=== PATIENT | male | born 1990 | race Caucasian/White ===

== ENCOUNTER 2022-10-27 04:33 | Day surgery (SDC) | payer BC ==
[2022-10-18 15:12] VITALS: BMI 28.7
[2022-10-27] MEDS ORDERED: COCAINE HCL 4% TOPICAL SOLUTION 4 ML BOTTLE TP ONE ×2 (07:18→08:23)
[2022-10-27] MEDS ORDERED: PROPOFOL 20 ML ONE (07:32)
[2022-10-27] MEDS ORDERED: FENTANYL CITRATE/PF 50 MCG/ML VIAL ONE (07:32)
[2022-10-27] MEDS ORDERED: MIDAZOLAM HCL 2 MG/2 ML SINGLE DOSE VIAL ONE (07:33)
[2022-10-27] MEDS ORDERED: ROCURONIUM BROMIDE 50 MG/5 ML SYRINGE ONE (07:33)
[2022-10-27] MEDS ORDERED: ONDANSETRON 4 MG/2 ML VIAL ONE (07:42)
[2022-10-27] MEDS ORDERED: LIDOCAINE HCL/PF 2% SDV 5ML VIAL ONE (07:42)
[2022-10-27] MEDS ORDERED: DEXAMETHASONE SOD PHOSPHATE 4 MG/1 ML VIAL ONE (07:42)
[2022-10-27] MEDS ORDERED: BENZOIN/ALOE VERA/STORAX/TOLU 58 ML BOTTLE ONE (07:52)
[2022-10-27] MEDS ORDERED: BENZOIN/ALOE VERA/STORAX/TOLU 58 ML BOTTLE TP ONE (08:24)
[2022-10-27] MEDS ORDERED: GLYCOPYRROLATE 0.2 MG/1 ML VIAL ONE ×2 (08:25→08:37)
[2022-10-27] MEDS ORDERED: NEOSTIGMINE METHYLSULFATE 0.5 MG/ML - 10 ML MDV ONE (08:25)
[2022-10-27] MEDS ORDERED: oxyCODONE HCL 5 MG TABLET PO PRN ×2 (09:05)
[2022-10-27] MEDS ORDERED: ONDANSETRON 4 MG/2 ML VIAL IVPUSH PRN (09:05)
[2022-10-27] MEDS ORDERED: ACETAMINOPHEN 1000 MG/100 ML BAG IVPB ONE (09:06)
[2022-10-27] MEDS ORDERED: LACTATED RINGERS SOLUTION 1,000 ML IV SCH (09:15)
[2022-10-27] MEDS ORDERED: ACETAMINOPHEN INJECTION 100 ML IVPB ONE (09:30)
[2022-10-27 11:33] VITALS: BP 135/80; PULSE 69; RESP 20; TEMP 98.6
== END 2022-10-27 11:34 | disposition home or self-care (01) ==
LOC: JASU-SURG 04:33
PROVIDERS: ATTEND Otolaryngology
PROC: 09BM8ZZ Excision of Nasal Septum, Via Natural or Artificial Opening Endoscopic (ICD-10-PCS; 2022-10-27)
PROC: 09TL8ZZ Resection of Nasal Turbinate, Via Natural or Artificial Opening Endoscopic (ICD-10-PCS; 2022-10-27)
PROC: 09TL8ZZ Resection of Nasal Turbinate, Via Natural or Artificial Opening Endoscopic (ICD-10-PCS; principal; 2022-10-27 07:30)
DX: J34.2 Deviated nasal septum (principal); J34.3 Hypertrophy of nasal turbinates
CPT/HCPCS: 88304-TC; 88311-TC; 94760